=== PATIENT | female | born 1965 | race Caucasian/White ===

== ENCOUNTER 2020-08-27 10:11 | Emergency (ER) | payer SELFPAY ==
[~2020-08-27] VITALS: Ht 160 cm; Wt 82.1 kg
[2020-08-27 10:32] VITALS: Ht 160 cm; Wt 82.1 kg
[2020-08-27 11:53] LABS: microscopic required? NO
[2020-08-27 12:14] LABS: PLATELET COUNT 242 x10^3mcL (179-408)
[2020-08-27 12:16] LABS: BASOPHIL % 0.2 % (0.2-1.3); RED CELL DISTRIBUTION WIDTH 13.3 % (12.3-17.7)
[2020-08-27 12:34] LABS: CALCIUM 8.7 mg/dL (8.5-10.1); CARBON DIOXIDE 28.5 mmol/L (21-32); CHLORIDE SERUM 100 mmol/L (98-107); CREATININE SERUM 0.5 mg/dL (0.6-1.0); GFR1 > 60 mL/min; GLUCOSE SERUM 211 mg/dL (74-106); SODIUM SERUM 137 mmol/L (136-145)
[2020-08-27 12:38] LABS: ALBUMIN 3.8 g/dL (3.4-5.0); ALKALINE PHOSPHATASE 109 U/L (46-116); ALT/SGPT 44 U/L (14-59); AST/SGOT 28 U/L (15-37); BILIRUBIN TOTAL 0.7 mg/dL (0.20-1.00); LACTIC DEHYDROGENASE (LDH) 153 U/L (100-190); TOTAL PROTEIN, SERUM 7.8 g/dL (6.4-8.2)
[2020-08-27 12:44] LABS: C REACTIVE PROTEIN 0.2 mg/dL (<=0.9)
[2020-08-27 13:03] LABS: UA SPECIFIC GRAVITY 1.025 (1.005-1.035); urine erythrocyte NEGATIVE (NEGATIVE)
[2020-08-27 14:07] VITALS: BP 148/90
== END 2020-08-27 14:13 | disposition home or self-care (01) ==
LOC: ED 10:11
PROVIDERS: Emergency Medicine
DX: U07.1 COVID-19 (principal); I10 Essential (primary) hypertension; B34.9 Viral infection, unspecified; E11.65 Type 2 diabetes mellitus with hyperglycemia; Z90.49 Acquired absence of other specified parts of digestive tract; Z98.890 Other specified postprocedural states
CPT/HCPCS: 36600; 82962; 83880; 85378; 87804; U0003

== ENCOUNTER 2020-08-31 14:54 | Emergency (ER) | payer MEDICAID ==
[~2020-08-31] VITALS: Ht 167.6 cm; Wt 79.4 kg
[2020-08-31 14:55] VITALS: Ht 167.6 cm; Wt 79.4 kg
[2020-08-31 16:02] LABS: BASOPHIL % 1.2 % (0.2-1.3); PLATELET COUNT 277 x10^3mcL (179-408); RED CELL DISTRIBUTION WIDTH 13.4 % (12.3-17.7)
[2020-08-31 16:19] LABS: CALCIUM 8.4 mg/dL (8.5-10.1); CARBON DIOXIDE 30.9 mmol/L (21-32); CHLORIDE SERUM 100 mmol/L (98-107); CREATININE SERUM 0.7 mg/dL (0.6-1.0); GFR1 > 60 mL/min; GLUCOSE SERUM 265 mg/dL (74-106); SODIUM SERUM 139 mmol/L (136-145)
[2020-08-31 16:23] LABS: ALBUMIN 4.1 g/dL (3.4-5.0); ALKALINE PHOSPHATASE 98 U/L (46-116); ALT/SGPT 45 U/L (14-59); AMYLASE 52 U/L (25-115); AST/SGOT 26 U/L (15-37); BILIRUBIN TOTAL 0.6 mg/dL (0.20-1.00); LIPASE 148 IU/L (73-393); TOTAL PROTEIN, SERUM 7.8 g/dL (6.4-8.2)
[2020-08-31 18:14] LABS: microscopic required? NO
[2020-08-31 18:23] LABS: UA SPECIFIC GRAVITY 1.015 (1.005-1.035); urine erythrocyte NEGATIVE (NEGATIVE)
[2020-08-31 19:28] VITALS: BP 124/66
== END 2020-08-31 19:28 | disposition home or self-care (01) ==
LOC: ED 14:54
PROVIDERS: Emergency Medicine
DX: U07.1 COVID-19 (principal); R10.817 Generalized abdominal tenderness; I10 Essential (primary) hypertension; E11.9 Type 2 diabetes mellitus without complications; R11.0 Nausea; R63.0 Anorexia; Z90.49 Acquired absence of other specified parts of digestive tract
CPT/HCPCS: J1885